=== PATIENT | female | born 2000 | race African-American/Black ===

== ENCOUNTER → 2019-09-20 | Outpatient (CLI) | payer OTHER ==
--- NOTE | 2019-09-20 15:02 | REP ---
HIDA SCAN WITH GALLBLADDER EJECTION FRACTION: Following the intravenous administration of 6.6 millicuries technetium 99m mebrofenin, multiple images of the right upper quadrant performed every 5 minutes for a period of 1 hour. Gallbladder is visualized at 15 minutes post injection. There is biliary to bowel transit at 25 minutes post injection with no scintigraphic evidence of cholecystitis. At the 1-hour peg, 8 ounces of Ensure Enlive is ingested and further imaging performed for 1 hour. Gallbladder activity is measured. Gallbladder ejection fraction is calculated to be 83%, which is normal. IMPRESSION: Normal gallbladder ejection fraction. Electronically Signed by Robel Howell MD 09/21/2019 12:30 P
== END ==
LOC: M RAD 08:03
PROVIDERS: ATTEND Internal Medicine Gastroenterology
DX: K82.8 Other specified diseases of gallbladder (principal); R10.11 Right upper quadrant pain
CPT/HCPCS: 78227; A9537